=== PATIENT | male | born 1965 ===

== ENCOUNTER 2025-07-17 11:09 | Outpatient (CLI) | payer OTHER | END 2025-07-17 17:00 | disposition home or self-care (01) | LOC: Rad HDHVI 11:09 | PROVIDERS: ATTEND Internal Medicine Cardiovascular Disease | DX: R20.2 Paresthesia of skin (principal) | CPT/HCPCS: 93306 ==

== ENCOUNTER 2025-07-24 09:55 | Outpatient (CLI) | payer OTHER ==
[~2025-07-24] VITALS: Ht 177.8 cm; Wt 79.4 kg
--- NOTE | 2025-08-04 12:50 | DVHSR ---
APPROVED REPORT Exam: Nuclear Stress Test Indication: Chest pain Ht: 5 ft 10 in Wt: 175 lbs BSA: 1.97 m2 HR: 62 bpm BP: 136/87 mmHg BMI: 25.10 Rhythm: NSR Medical History Medical History: HTN, BPH Medications: Losartan, Finasteride, Tamsulosin Allergies: No known drug allergies Stress Test Details Stress Test: Exercise stress testing was performed using a [place] protocol. HR Resting HR: 62 bpmMax Heart Rate (APMHR): 162.682074 bpm Max HR Achieved: 146 bpmTarget HR (85% APMHR): 137.160631 bpm % of APMHR: 90.12 Recovery HR: 83 bpm HR response to stress: Normal HR response to stress BP Resting BP: 136/87 mmHg Max BP: 191/91 mmHg Recovery BP: 158/84 mmHg BP response to stress: Exaggerated response ECG Resting ECG: Sinus Rhythm Stress ECG: Sinus Tachycardia Arrhythmia: None Recovery ECG: Sinus Rhythm Clinical Reason for Termination: Target HR achieved Stress Symptoms: None Exercise duration: 7 min 30 sec Exercise capacity: 10.1 METs Stress ECG Conclusion EF >55% NON ISCHEMIC CLINICAL RESPONSE NON ISCHEMIC ECG RESPONSE NON ISCHEMIC CARDIOLITE STRESS LESS THAN 10% LIKELIHOOD FOR STRESS INDUCED ISCHEMIA NM EXAM: Myocardial Perfusion REST/STRESS Imaging Protocol: Rest Tc-99m/Stress Tc-99m 1 day Resting Data Rest SPECT myocardial perfusion imaging was performed in supine position 30 minutes following the int ravenous injection of 10.95 mCi of Tc-99m Sestamibi. Time of rest injection: 1007 Date: 07/24/2025 Time of rest imagin Date: 07/24/2025 Administration Route: IV Administration Site: Left AC Exercise Stress At peak stress, the patient was injected intravenously with 28.7 mCi of Tc-99m Sestamibi. Time of stress injection: 1136 Date: 07/24/2025 Time of stress imagin Date: 07/24/2025 Administration Route: IV Administration Site: Left AC Heart Rate at time of stress injection: 146 bpm. Patient continued to exercise for 1 minute(s). Gated Stress SPECT was performed 15 minutes after stress injection. The images were gated to evaluate regional wall motion and calculate left ventricular ejection fracti on. Comments Cardiolite injection at 6 minutes, 26 seconds into test. Nuclear Conclusion ECG Findings: negative for ischemia Clinical Findings: negative for ischemia Nuclear Findings: negative for ischemia Left Ventricular Function: normal EF >55% NON ISCHEMIC CLINICAL RESPONSE NON ISCHEMIC ECG RESPONSE NON ISCHEMIC CARDIOLITE STRESS LESS THAN 10% LIKELIHOOD FOR STRESS INDUCED ISCHEMIA
== END 2025-07-24 17:00 | disposition home or self-care (01) ==
LOC: Rad HDHVI 09:55
PROVIDERS: ATTEND Internal Medicine Cardiovascular Disease
DX: I10 Essential (primary) hypertension (principal); R07.89 Other chest pain; R00.0 Tachycardia, unspecified
CPT/HCPCS: 78452; 93017; A9500; 96374